=== PATIENT | female | born 1970 | race African-American/Black ===

== ENCOUNTER 2023-11-07 10:08 | Emergency (ER) | payer MEDICAID ==
[~2023-11-07] VITALS: Ht 165.1 cm; Wt 104.5 kg
[2023-11-07 10:10] VITALS: BP 113/77; PULSE 82; RESP 20; TEMP 98.7
[2023-11-07] MEDS ORDERED: AMLO-257 PO ×2 (10:16→12:22)
[2023-11-07] MEDS ORDERED: ALBU18HF12 IH (10:16)
[2023-11-07] MEDS ORDERED: HYDR200T38 PO ×2 (10:16→12:22)
[2023-11-07] MEDS ORDERED: PRED-554 PO (12:19)
[2023-11-07] MEDS ORDERED: CLOB25SO14 TP (12:22)
[2023-11-07] MEDS: PredniSONE 20 MG TABLET PO ONE (12:26)
== END 2023-11-07 12:33 | disposition home or self-care (01) ==
LOC: EMS 10:10
DX: M32.9 Systemic lupus erythematosus, unspecified (principal); I10 Essential (primary) hypertension; J45.909 Unspecified asthma, uncomplicated; M79.7 Fibromyalgia; Z90.710 Acquired absence of both cervix and uterus; Z88.0 Allergy status to penicillin
CPT/HCPCS: 99283; J7512